=== PATIENT | female | born 1940 | race Caucasian/White ===

== ENCOUNTER → 2016-10-23 | Outpatient (CLI) | payer OTHER | LOC: MMPC 09:00 | PROVIDERS: ATTEND Nurse Practitioner Family | DX: R63.4 Abnormal weight loss (principal); N95.2 Postmenopausal atrophic vaginitis; F17.210 Nicotine dependence, cigarettes, uncomplicated | CPT/HCPCS: 99213; G0463 ==

== ENCOUNTER 2017-05-20 15:41 | Inpatient (IN) ==
[2017-05-20] MEDS ORDERED: LIDOCAINE W/ SODIUM BICARB 0.5 ML SYR SUBD PRN (15:46)
[2017-05-20] MEDS ORDERED: ALBUTEROL SULFATE 2.5 MG/3 ML NEB PRN (15:46)
[2017-05-20] MEDS ORDERED: ONDANSETRON 4 MG/2 ML VIAL IVP PRN (15:46)
[2017-05-20] MEDS ORDERED: cefTRIAXone Inj 2 GM in Sodium Chloride 0.9% 100 ML IV SCH (16:00)
--- NOTE | 2017-05-20 16:11 | PDOC ---
HPI - History of Present Illness Date and Time of Service: 05/20/2017, 1607 Chief Complaint: Cough History of Present Illness: This is a 76-year-old female who has come in with a complaint of a cough at the clinic today and was found to have pneumonia. She states that she was on riverboat trip down the [facility] when she developed some cough and chills. She had some cold symptoms and they progressively got worse. This is been over the last 2 weeks. She's tried [id number] cold and cough medications that did not help. She's tried Tylenol and Motrin or anti- inflammatories for some neck pain, headaches, and back pain that developed with this cough and chills. She was febrile in the clinic, hypoxic, and was given some DuoNeb updrafts. I was called to see if the patient could be directly admitted. Patient's never had anything like this happen before. Her pneumonia severity index is 84 points, class III pneumonia. Her curb-65 score is 1. She has not had the flu shot or the pneumonia shot. She does smoke three quarters of a pack per day. She has never been diagnosed with COPD to my knowledge and her sputum is noted to be productive in the setting of this infection. Past Medical History Medical History: 1. Remote history of diverticulitis status post hemicolectomy. 2. Tobacco abuse. 3. Loss of weight, adult, 30 pounds in last 2 years since 's passing Surgical History: 1. Hemicolectomy as mentioned. 2. Tubal ligation. 3. Tonsillectomy Pertinent Family History: States that her parents of coronary thrombosis and cancer. Past Social History: Smokes three quarters of pack per day, , lives about [place] miles out of town. Has 2 children described as healthy. Tobacco Use: Current Every Day Smoker In the Past 12 Months, Have Used or Abuse Any of the Following Substance: None Alcohol Use: None Medication / Allergies Home Medications: Home Medications Medication Instructions Recorded Confirmed Type Estradiol Vaginal Cream 0.01% 1 applic VAGINAL 2XW #1 tube 04/24/16 05/20/17 Rx [Estrace Vaginal Cream 0.01%] ipratropium-albuterol 0.5 mg-3 3 ml INH ONCE #1 ml 05/20/17 Clinic mg(2.5 mg base)/3 mL nebulization soln Allergies/Adverse Reactions: Allergies 3 Allergy/AdvReac Type Severity Reaction Status Date / Time oxytetracycline Allergy local Verified 05/20/17 16:08 [From Terramycin] reaction oxytetracycline HCl Allergy local Verified 05/20/17 16:08 [From Terramycin] reaction Penicillins Allergy NOT Verified 05/20/17 16:08 APPLICABLE Sulfa (Sulfonamide Allergy HIVES Verified 05/20/17 16:08 Antibiotics) Review of Systems - Review of Systems All Systems: Reviewed & No Additional Complaints Except as Stated (I did a 12 point review systems and it was negative other than that discussed in the history of present illness and that noted below.) - Constitutional Constitutional: REPORTS: Weight Loss (Over the past 2 years. Patient states 30 pounds over the past 2 years.), Fever / Chills, Recent Illness - Respiratory Respiratory: REPORTS: Cough, Sputum - Musculoskeletal Musculoskeletal: REPORTS: Neck Pain (Acute in the setting of this pneumonia along with headache) - Neurological Neurologic: REPORTS: Headache Exam - Vitals Vital Signs: Vital Signs (24 hrs) Pulse Ox 05/20/17 15:46 93 On room air. Currently patient is afebrile, blood pressure systolic is in the 130s, heart rate is in the 80s on my exam. Respiratory rate is 24-26. - General General Appearance: Cooperative, Mild Distress Additional General Exam Details: Appears ill but not toxic. Breathing at a mildly labored rate - Head Head Exam: Normal Inspection, Normocephalic, Atraumatic Additional Head Exam Details: Some temporal wasting - Eye Eye Exam: POSITIVE: Normal Appearance, No Scleral Icterus - ENT ENT Exam: POSITIVE: Mucous Membranes Moist - Neck Neck Exam: Normal Inspection, No Tenderness, No Lymphadenopathy, No Thyromegaly - Respiratory Respiratory Exam: POSITIVE: Normal to Percussion and Palpation, Crackles (In the bases bilaterally), Accessory Muscle Use Additional Respiratory Exam Details: Patient has some accessory muscle use, is breathing in the mid 20s. - Cardiovascular Cardiovascular Exam: POSITIVE: RRR, No Murmur, No Clicks, No Gallops, No Rubs, No JVD - GI/Abdominal GI/Abdominal Exam: POSITIVE: Normal Bowel Sounds, Non Tender, Non Distended, Soft - Rectal Rectal Exam: POSITIVE: Deferred - External Exam: POSITIVE: Deferred Exam: POSITIVE: Deferred - Extremities Extremities Exam: POSITIVE: No Clubbing Present, No Edema Present, No Cyanosis Present Additional Extremities Exam Details: Slight abrasion on right knee from a fall in [place] on her recent river cruise. She states the pain in her knee and the scapular gotten better. Not notable for any swelling or joint effusion. - Back Back Exam: POSITIVE: Normal Inspection, No CVA Tenderness - Neurological Neurological Exam: POSITIVE: Alert, Oriented x 3, No Facial Droop, Speech Intact / Clear, Moves All Extremities Equally - Psychiatric Psychiatric Exam: POSITIVE: Normal Affect, Normal Mood - Integumentary Integumentary Exam: POSITIVE: Normal Color, Warm, Dry, Intact - Central Line Examination Central Line Present on Admission: No Results - Labs Additional Lab Results: I reviewed the labs from the clinic, the patient's whereabouts count is over 20. Her creatinine is normal. She has a sodium of 129. - Imaging Status: Image Reviewed by Me (An outpatient chest x-ray was done and on my view of the chest x-ray the patient appears to have bilateral pneumonia, right side slightly greater than left. This is in the lower lobes bilaterally.) Assessment and Plan - Patient Problems (1) Community acquired pneumonia Current Visit: Yes Status: Acute Code(s): J18.9 - Pneumonia, unspecified organism Qualifiers: Laterality: right Lung location: lower lobe of lung Qualified Code(s): J18.1 - Lobar pneumonia, unspecified organism (2) Tobacco dependence Current Visit: No Status: Acute Onset Date: 01/20/14 Code(s): F17.200 - Nicotine dependence, unspecified, uncomplicated - Assessment / Plan Additional Assessment/Plan Details: Admit the patient. Rocephin and Zithromax IV. Get blood cultures 2. DVT prophylaxis. Smoking cessation education, I spoke with the patient regarding this and she is very pre-contemplative. She would be willing to do a nicotine patch here. For the cough I will also write Mucinex and duo nebs and albuterol. It is very likely that this patient has COPD. She may benefit from spirometry or pulmonary function tests to be done after she recovers from this infection. Her pneumonia severity index and curb65 score show that the patient probably has a mild intermediate pneumonia, however clinically she is reading a more labored rate than normal and intermittently has been noted to be hypoxic in the clinic although on room air is 93% here now. Tylenol for pain and fever, tramadol for pain In my discussion with the PA admitting the patient to me, the x-ray may have had some other indistinct finding in the upper lobe. I will get a CT scan of the chest while the patient is here. Although I will start treatment for community acquired pneumonia, given the proximity to water, legionnaires does need to be thought about, and I'll try to get a Legionella urinary antigen although it is a send out. The patient is full code, discussed this in depth with her. Patient is in agreement with the plan above.
[2017-05-20] MEDS ORDERED: NICOTINE 14 MG /DAY PATCH TRANSDERM ONE (16:18)
[2017-05-20] MEDS ORDERED: Influenza Vacc-Egg Free 17-18 180mcg/0.5ml PF Syringe(18yr+) IM ONE (16:19)
[2017-05-20] MEDS ORDERED: Sodium Chloride 0.9% 1,000 ML PRIMARY IV ONE (16:19)
[2017-05-20] MEDS: traMADol 50 MG TABLET PO PRN (16:44)
[2017-05-20] MEDS: Sodium Chloride 0.9% 1,000 ML PRIMARY IV SCH (17:29)
[2017-05-20] MEDS: NICOTINE 14 MG /DAY PATCH TRANSDERM SCH (17:32)
[2017-05-20] MEDS ORDERED: CEFTRIAXONE SODIUM 2 GM VIAL IV ONE (17:34)
--- NOTE | 2017-05-20 18:21 | DI ---
CT CHEST SCAN WITHOUT IV CONTRAST, 05/20/2017 5:25 PM : Clinical History: Pneumonia. Smoker. Low serum sodium. This history was provided to me by the [facility] hospitalist. Previous Exam: None at this facility. Scans are performed from the base of the neck to the lower lung bases without IV contrast. Sagittal a nd coronal images using non MIPS and MIPS technique are generated. The base of the neck and thoracic inlet are normal. There are no abnormal axillary, supraclavicular, or hilar nodes. There are multiple enlarged lymph nodes in the superior mediastinum in the aortopulmo saurav window as well as paratracheal lymph nodes just anterior to the humberto. The heart is normal. Cristian nary artery calcifications are present in the proximal and middle thirds of the LAD and in the right coronary artery. There are bilateral alveolar type infiltrates involving the lower lobes predominatel y in the basal segments of the left lower lobe and to a lesser degree in the anterobasal and lateral basal segments of the right lower lobe. There is mild bronchiectasis in the lower lobes. Bullae are p resent in both upper lobes indicating bullous emphysema. In the right upper lobe laterally in the api earlene segment are multiple densities measuring about 15 mm in diameter that are pleural-based. The more anterior lesion does have some spiculations. The more posterior component has some small punctate ca lcifications and is more sharply defined. It is difficult to state specifically the one or the other of these lesions is malignant. No other nodular densities are present. Both adrenal glands, the splee n, and the visualized portions of the liver and pancreas are normal. READIN. There are bilateral lower lobe infiltrates primarily involving the basal segments of the left low er lobe but also of the anterobasal and lateral basal segments of the right lower lobe. These are con sistent with pneumonia, although if they do not resolve in typical fashion of a pneumonia, then consi deration for alveolar cell carcinoma should be made. There is some mild bronchiectasis. There is archana opathy in the superior and middle mediastinum. No hilar adenopathy is identified. 2. There are pleural-based nodules located along the lateral aspect of the apical segment of the rig ht upper lobe. The more anterior component has a spiculated appearance and the more posterior compone nt has some small calcifications. These are indeterminant for representing carcinoma. 3. Bullous emphysema. Coronary artery disease.
[2017-05-20] MEDS ORDERED: KETOROLAC 15 MG/1 ML VIAL IVP ONE (18:52)
[2017-05-20] MEDS: IPRATROPIUM/ALBUTEROL SULFATE 3 ML NEB NEB SCH (18:59)
[2017-05-20] MEDS: cefTRIAXone Inj 2 GM in Sodium Chloride 0.9% 100 ML IV SCH (19:22)
[2017-05-20] MEDS: GUAIFENESIN 600 MG TABLET PO SCH (22:00)
[2017-05-21] MEDS: Sodium Chloride 0.9% 1,000 ML PRIMARY IV SCH ×2 (01:00→09:47)
[2017-05-21 05:42] LABS: Hematocrit [HCT] 34.1 % (37.0-47.0); Hemoglobin [HGB] 11.8 g/dL (12.0-16.0); MEAN CORPUSCULAR HEMOGLOBIN 31.4 PG (27-31); MEAN CORPUSCULAR HGB CONC 34.6 g/dL (33-37); MEAN CORPUSCULAR VOLUME 90.7 FL (81-99); MEAN PLATELET VOLUME 9.4 FL (7.4-12.2); RED BLOOD COUNT 3.76 10^6/uL (4.20-5.40)
[2017-05-21 05:52] LABS: BLOOD UREA NITROGEN 11 mg/dL (7-22); BUN/CREATININE RATIO 18.33 (6-20)
[2017-05-21 06:13] LABS: PLATELET MORPHOLOGY COMMENT NORMAL MORPHOLOGY (NORM); RBC MORPHOLOGY COMMENT NORMAL MORPHOLOGY (NORM); WBC MORPHOLOGY COMMENT NORMAL MORPHOLOGY (NORM)
[2017-05-21 06:15] LABS: BAND NEUTROPHILS % 8 % (0-10); BASOPHILS % (MANUAL) 0 % (0-1); EOSINOPHILS % (MANUAL) 0 % (0-8); MONOCYTES % (MANUAL) 10 % (0-12); NEUTROPHILS % (MANUAL) 74 % (50-80)
[2017-05-21] MEDS: IPRATROPIUM/ALBUTEROL SULFATE 3 ML NEB NEB SCH ×4 (06:51→18:45)
[2017-05-21] MEDS: traMADol 50 MG TABLET PO PRN (07:28)
[2017-05-21] MEDS: ENOXAPARIN SODIUM 40 MG/0.4 ML SYRINGE SUBCUT SCH (08:51)
[2017-05-21] MEDS: GUAIFENESIN 600 MG TABLET PO SCH ×2 (08:51→23:42)
--- NOTE | 2017-05-21 10:53 | DI ---
CT HEAD SCAN WITHOUT IV CONTRAST, 05/20/2017 4:20 PM : Clinical History: Pneumonia. Smoker. Comment: The study was inadvertently performed because of communication errors. The patient was sched uled for a noncontrast CT scan of the chest but this head scan was performed instead. The patient was not charged for this procedure. An incident report has been filed. No harm was sustained by the braydon ent. Previous Exam: None at this facility. Scans are obtained from the foramen magnum to the vertex without IV contrast. The 4th, 3rd, and lateral ventricles are of normal size, shape, position, and contour for the patient 's age. There is no evidence of an acute hemorrhagic or bland infarct. There are multiple punctate pe riventricular white matter lucencies bilaterally that extend into the watershed territory, consistent with small vessel ischemic disease. This amount of ischemic disease is quite appropriate for the pat ient's age. There is moderate cerebellar and cerebral atrophy. There are no extracerebral mantles or shift of the midline structures. Bone window evaluation is normal. The paranasal sinuses are normal. READIN. This examination was performed inadvertently because of a miscommunication regarding the orders f or this patient. The patient was not harmed. The patient was not charged for this exam. 2. There is no evidence of an acute hemorrhagic or bland infarct. There is very mild small vessel is chemic disease. 3. Moderate cerebellar and cerebral atrophy.
[2017-05-21] MEDS: Patch Removal PATCH TRANSDERM SCH ×2 (15:10→15:40)
[2017-05-21] MEDS: NICOTINE 14 MG /DAY PATCH TRANSDERM SCH ×2 (15:10→15:40)
[2017-05-21] MEDS: cefTRIAXone Inj 2 GM in Sodium Chloride 0.9% 100 ML IV SCH (19:00)
--- NOTE | 2017-05-21 20:56 | PDOC(PROG) ---
Date and Time of Service: 05/21/2017, 2051 Interval History: No chest pain, but continues with cough and had poor sleep overnight. No nausea or vomiting. We discussed the head CT scan, I disclosed that somehow an error was made with that study, I agree with radiology that no harm results of because of this area. The patient was not charged for the study. It did show some cerebral vascular disease, but no evidence of stroke or hemorrhage. The patient stated that she understood. She was grateful for an apology that I gave her. Mucinex did not help much with the cough. Objective : Data - Labs CBC and BMP: 05/21/17 05:25 05/21/17 05:25 Additional Lab Results: Laboratory Results 05/21/17 05/21/17 Range/Units 05:25 05:25 WBC 19.44 H (4.8-10.8) 10^3/uL RBC 3.76 L (4.20-5.40) 10^6/uL Hgb 11.8 L (12.0-16.0) g/dL Hct 34.1 L (37.0-47.0) % MCV 90.7 (81-99) FL MCH 31.4 H (27-31) PG MCHC 34.6 (33-37) g/dL RDW Std Deviation 40.9 (39-50) fL RDW Coeff of Alisa 12.6 (11.5-14.5) % Plt Count 286 (140-350) 10*3/uL MPV 9.4 (7.4-12.2) FL Neutrophils % (Manual) 74 (50-80) % Band Neutrophils % 8 (0-10) % Lymphocytes % (Manual) 8 L (10-50) % Monocytes % (Manual) 10 (0-12) % Eosinophils % (Manual) 0 (0-8) % Basophils % (Manual) 0 (0-1) % Metamyelocytes % Not Reportable Myelocytes % Not Reportable Promyelocytes % Not Reportable Blast Cells Not Reportable WBC Morphology Comment Normal morphology (NORM) Plt Morphology Comment Normal morphology (NORM) RBC Morph Comment Normal morphology (NORM) Sodium 129 L (135-145) meq/L Potassium 4.3 (3.8-5.2) meq/L Chloride 99 (98-112) meq/L Carbon Dioxide 21 L (23-33) meq/L Anion Gap 9 (5-20) BUN 11 (7-22) mg/dL Creatinine 0.6 (0.50-1.20) mg/dL BUN/Creatinine Ratio 18.33 (6-20) Glucose 93 (78-110) mg/dL Calculated Osmolality 266.0 L (267-292) mOsm/kg Calcium 7.6 L (8.7-10.7) mg/dL - Imaging CT Scan Status: Image Reviewed by Me (CT scan of the head appears negative for bleed on my view. CT scan of the chest shows what appears to be an infectious process in the left lower lobe, and some pulmonary masses or nodules in the right upper lobe that are spiculated and suspicious for more than just infection. They are in the periphery of the lung.) Objective : Exam - General General Appearance: No Acute Distress, Cooperative Additional General Exam Details: Vital Signs (24 hrs) Temp Pulse Pulse Pulse Resp BP Pulse Ox 05/21/17 18:46 84 18 99 05/21/17 18:45 80 17 95 05/21/17 16:49 99.1 F 89 18 125/61 97 05/21/17 15:46 96 05/21/17 15:00 78 18 99 05/21/17 14:59 81 18 96 05/21/17 12:19 98.4 F 101 H 22 111/51 92 05/21/17 11:49 80 18 100 05/21/17 11:48 79 18 94 05/21/17 08:07 98.6 F 95 18 105/51 93 05/21/17 07:00 100 18 05/21/17 06:52 90 20 98 05/21/17 06:51 91 05/21/17 05:22 83 05/21/17 05:00 98.6 F 92 22 127/62 91 05/21/17 00:44 98.6 F 92 22 127/62 91 05/20/17 21:00 98.4 F 90 20 115/55 90 - Eye Eye Exam: No Scleral Icterus - ENT ENT Exam: Mucous Membranes Moist - Respiratory Respiratory Exam: Breathing Non Labored, Coarse Breath Sounds Additional Respiratory Exam Details: Lots of coughing on exam but not productive. - Cardiovascular Cardiovascular Exam: RRR, No Murmur, No Clicks, No Gallops, No Rubs, No JVD - GI/Abdominal GI/Abdominal Exam: Normal Bowel Sounds, Non Tender, Non Distended, Soft - Extremities Extremities Exam: No Clubbing Present, No Edema Present, No Cyanosis Present - Neurological Neurological Exam: Alert, Oriented x 3, No Facial Droop, Speech Intact / Clear, Moves All Extremities Equally - Psychiatric Psychiatric Exam: Normal Affect, Normal Mood Assessment and Plan - Patient Problems (1) Community acquired pneumonia Current Visit: Yes Status: Acute Code(s): J18.9 - Pneumonia, unspecified organism Qualifiers: Laterality: right Lung location: lower lobe of lung Qualified Code(s): J18.1 - Lobar pneumonia, unspecified organism (2) Tobacco dependence Current Visit: Yes Status: Acute Onset Date: 01/20/14 Code(s): F17.200 - Nicotine dependence, unspecified, uncomplicated (3) Hyponatremia Current Visit: Yes Status: Acute Code(s): E87.1 - Hypo-osmolality and hyponatremia (4) Cerebrovascular disease Current Visit: Yes Status: Acute Code(s): I67.9 - Cerebrovascular disease, unspecified - Assessment / Plan Additional Assessment/Plan Details: Overall, I think that the hyponatremia persistent despite normal saline bolus and fluids overnight 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 I think we need to get the patient arranged with either oncology or pulmonology to review the CT scans, and I would like to get the patient through therapy of this pneumonia prior to any procedures being performed but the patient may need to have a closer look at these. I discussed this with the patient in detail. Nicotine patch for smoking cessation. Again I reiterated the importance of quitting smoking. Continue antibiotics, day #2 of 7. I will change Zithromax to by mouth tomorrow. Add Robitussin with codeine for cough. Oxygen as necessary, patient did have some episodes of hypoxia overnight.
[2017-05-21] MEDS: GUAIFENESIN/CODEINE SYRUP 100 MG/ 10 MG/ 5 ML UD CUP PO PRN (23:43)
[2017-05-22] MEDS: IPRATROPIUM/ALBUTEROL SULFATE 3 ML NEB NEB SCH ×4 (06:56→18:39)
[2017-05-22] MEDS: traMADol 50 MG TABLET PO PRN ×2 (07:07→21:33)
[2017-05-22] MEDS: GUAIFENESIN/CODEINE SYRUP 100 MG/ 10 MG/ 5 ML UD CUP PO PRN (07:07)
[2017-05-22] MEDS: ENOXAPARIN SODIUM 40 MG/0.4 ML SYRINGE SUBCUT SCH (08:32)
[2017-05-22] MEDS: GUAIFENESIN 600 MG TABLET PO SCH ×2 (08:32→20:25)
[2017-05-22] MEDS ORDERED: AZITHROMYCIN 250 MG TABLET PO ONE (15:30)
--- NOTE | 2017-05-22 15:38 | PDOC(PROG) ---
Date and Time of Service: 05/22/2017, 1535 Interval History: no chest pain. still had poor sleep but cough is a bit better today and she feels better. no nausea or vomiting. Hypoxia has been intermittent. Objective : Data - Labs CBC and BMP: 05/21/17 05:25 05/21/17 05:25 Additional Lab Results: Laboratory Results 05/21/17 05/21/17 05/21/17 Range/Units 05:25 05:25 09:34 WBC 19.44 H (4.8-10.8) 10^3/uL RBC 3.76 L (4.20-5.40) 10^6/uL Hgb 11.8 L (12.0-16.0) g/dL Hct 34.1 L (37.0-47.0) % MCV 90.7 (81-99) FL MCH 31.4 H (27-31) PG MCHC 34.6 (33-37) g/dL RDW Std Deviation 40.9 (39-50) fL RDW Coeff of Alisa 12.6 (11.5-14.5) % Plt Count 286 (140-350) 10*3/uL MPV 9.4 (7.4-12.2) FL Neutrophils % (Manual) 74 (50-80) % Band Neutrophils % 8 (0-10) % Lymphocytes % (Manual) 8 L (10-50) % Monocytes % (Manual) 10 (0-12) % Eosinophils % (Manual) 0 (0-8) % Basophils % (Manual) 0 (0-1) % Metamyelocytes % Not Reportable Myelocytes % Not Reportable Promyelocytes % Not Reportable Blast Cells Not Reportable WBC Morphology Comment Normal morphology (NORM) Plt Morphology Comment Normal morphology (NORM) RBC Morph Comment Normal morphology (NORM) Sodium 129 L (135-145) meq/L Potassium 4.3 (3.8-5.2) meq/L Chloride 99 (98-112) meq/L Carbon Dioxide 21 L (23-33) meq/L Anion Gap 9 (5-20) BUN 11 (7-22) mg/dL Creatinine 0.6 (0.50-1.20) mg/dL BUN/Creatinine Ratio 18.33 (6-20) Glucose 93 (78-110) mg/dL Calculated Osmolality 266.0 L (267-292) mOsm/kg Calcium 7.6 L (8.7-10.7) mg/dL TSH (0.2700-4.2000) uIU/mL Free T4 (0.93-1.71) ng/dL Ur Random Sodium 120 H (30-90) MMOL/L 05/22/17 Range/Units 03:22 WBC (4.8-10.8) 10^3/uL RBC (4.20-5.40) 10^6/uL Hgb (12.0-16.0) g/dL Hct (37.0-47.0) % MCV (81-99) FL MCH (27-31) PG MCHC (33-37) g/dL RDW Std Deviation (39-50) fL RDW Coeff of Alisa (11.5-14.5) % Plt Count (140-350) 10*3/uL MPV (7.4-12.2) FL Neutrophils % (Manual) (50-80) % Band Neutrophils % (0-10) % Lymphocytes % (Manual) (10-50) % Monocytes % (Manual) (0-12) % Eosinophils % (Manual) (0-8) % Basophils % (Manual) (0-1) % Metamyelocytes % Myelocytes % Promyelocytes % Blast Cells WBC Morphology Comment (NORM) Plt Morphology Comment (NORM) RBC Morph Comment (NORM) Sodium (135-145) meq/L Potassium (3.8-5.2) meq/L Chloride (98-112) meq/L Carbon Dioxide (23-33) meq/L Anion Gap (5-20) BUN (7-22) mg/dL Creatinine (0.50-1.20) mg/dL BUN/Creatinine Ratio (6-20) Glucose (78-110) mg/dL Calculated Osmolality (267-292) mOsm/kg Calcium (8.7-10.7) mg/dL TSH 2.38 (0.2700-4.2000) uIU/mL Free T4 1.64 (0.93-1.71) ng/dL Ur Random Sodium (30-90) MMOL/L Objective : Exam - General General Appearance: No Acute Distress, Cooperative Additional General Exam Details: Vital Signs (24 hrs) Temp Pulse Pulse Pulse Resp BP Pulse Ox 05/22/17 14:57 84 18 05/22/17 14:56 84 18 05/22/17 13:00 98.4 F 98 20 125/58 90 05/22/17 10:39 86 18 05/22/17 10:38 86 18 05/22/17 07:56 98.7 F 92 20 118/51 90 05/22/17 07:00 98 18 05/22/17 06:57 96 24 05/22/17 06:56 94 24 05/22/17 04:45 98.1 F 88 20 122/54 92 05/22/17 04:24 95 05/22/17 00:47 97.8 F 86 20 117/57 94 05/21/17 21:00 98.8 F 87 20 129/69 95 05/21/17 19:00 100 86 20 05/21/17 18:46 84 18 99 05/21/17 18:45 80 17 95 05/21/17 16:49 99.1 F 89 18 125/61 97 05/21/17 15:46 96 - Eye Eye Exam: No Scleral Icterus - ENT ENT Exam: Mucous Membranes Moist - Respiratory Respiratory Exam: Breathing Non Labored, Crackles (in bases bilaterally) - Cardiovascular Cardiovascular Exam: RRR, No Murmur, No Clicks, No Gallops, No Rubs, No JVD - GI/Abdominal GI/Abdominal Exam: Normal Bowel Sounds, Non Tender, Non Distended, Soft - Extremities Extremities Exam: No Clubbing Present, No Edema Present, No Cyanosis Present - Neurological Neurological Exam: Alert, Oriented x 3, No Facial Droop, Speech Intact / Clear, Moves All Extremities Equally - Psychiatric Psychiatric Exam: Normal Affect, Normal Mood Assessment and Plan - Patient Problems (1) Community acquired pneumonia Current Visit: Yes Status: Acute Code(s): J18.9 - Pneumonia, unspecified organism Qualifiers: Laterality: right Lung location: lower lobe of lung Qualified Code(s): J18.1 - Lobar pneumonia, unspecified organism (2) Tobacco dependence Current Visit: Yes Status: Acute Onset Date: 01/20/14 Code(s): F17.200 - Nicotine dependence, unspecified, uncomplicated (3) Hyponatremia Current Visit: Yes Status: Acute Code(s): E87.1 - Hypo-osmolality and hyponatremia (4) Cerebrovascular disease Current Visit: Yes Status: Acute Code(s): I67.9 - Cerebrovascular disease, unspecified - Assessment / Plan Additional Assessment/Plan Details: day #3 of 7 of antibiotics. zithromax to PO today. can probably come off IV antibiotics tomorrow if no fevers. I would like to get patient to Dr. Dee regarding the suspicious lesions in the chest on CT scan in [place]. I suspect they are cancer. 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 smoking cessation dietary consult; ensure or boost supplements. check labs tomorrow.
[2017-05-22] MEDS: Patch Removal PATCH TRANSDERM SCH (15:48)
[2017-05-22] MEDS: NICOTINE 14 MG /DAY PATCH TRANSDERM SCH (15:48)
[2017-05-22] MEDS: cefTRIAXone Inj 2 GM in Sodium Chloride 0.9% 100 ML IV SCH (17:10)
[2017-05-22] MEDS: NORMAL SALINE 10 ML SYRINGE FLUSH IVP PRN (17:11)
[2017-05-23 05:10] LABS: Hematocrit [HCT] 32.7 % (37.0-47.0); Hemoglobin [HGB] 11.3 g/dL (12.0-16.0); MEAN CORPUSCULAR HEMOGLOBIN 31.1 PG (27-31); MEAN CORPUSCULAR HGB CONC 34.6 g/dL (33-37); MEAN CORPUSCULAR VOLUME 90.1 FL (81-99); MEAN PLATELET VOLUME 9.3 FL (7.4-12.2); RED BLOOD COUNT 3.63 10^6/uL (4.20-5.40)
[2017-05-23 05:26] LABS: BLOOD UREA NITROGEN 6 mg/dL (7-22)
[2017-05-23 05:47] LABS: BAND NEUTROPHILS % 9 % (0-10); BASOPHILS % (MANUAL) 0 % (0-1); EOSINOPHILS % (MANUAL) 0 % (0-8); MONOCYTES % (MANUAL) 9 % (0-12); NEUTROPHILS % (MANUAL) 68 % (50-80); PLATELET MORPHOLOGY COMMENT NORMAL MORPHOLOGY (NORM); RBC MORPHOLOGY COMMENT NORMAL MORPHOLOGY (NORM); WBC MORPHOLOGY COMMENT NORMAL MORPHOLOGY (NORM)
[2017-05-23] MEDS: IPRATROPIUM/ALBUTEROL SULFATE 3 ML NEB NEB SCH ×4 (06:34→18:36)
[2017-05-23] MEDS: GUAIFENESIN/CODEINE SYRUP 100 MG/ 10 MG/ 5 ML UD CUP PO PRN ×2 (06:44→18:53)
[2017-05-23] MEDS: traMADol 50 MG TABLET PO PRN (06:49)
--- NOTE | 2017-05-23 07:51 | PDOC(PROG) ---
Date and Time of Service: 05/23/2017 7:52 AM Interval History: Subjective Patient came into the hospital with history of cough with phlegm production, the phlegm was described as a yellow then brown and now it's clear. She was on a cruise down the [facility] area when she said she got sick and her symptoms persisted and she came into the clinic and was admitted. There was no wheezing, she did have fever at one point but that's resolved. She think there may be some improvement compared to when she came in. She is a smoker. Today she said she had a coughing spell and and diarrhea went like 4 times. Liquid diarrhea. No blood. Objective : Data - Labs CBC and BMP: 05/23/17 04:35 05/23/17 04:35 Objective : Exam - General General Appearance: Cooperative, Thin Additional General Exam Details: Appears tired - Head Head Exam: Normal Inspection - Eye Eye Exam: Normal Appearance - ENT ENT Exam: Normal Exam - Neck Neck Exam: Normal Inspection - Respiratory Additional Respiratory Exam Details: Crackles bilateral at the bases and also the front of the left lung. - Cardiovascular Cardiovascular Exam: RRR - GI/Abdominal GI/Abdominal Exam: Normal Bowel Sounds, Non Tender, Non Distended, Soft - Rectal Rectal Exam: Deferred - External Exam: Deferred - Extremities Extremities Exam: Normal Inspection - Back Back Exam: Normal Inspection, Full ROM - Neurological Neurological Exam: Alert, Oriented x 3, CN II-XII Intact, Moves All Extremities Equally - Psychiatric Psychiatric Exam: Normal Affect - Integumentary Integumentary Exam: Normal Color Assessment and Plan - Patient Problems (1) Community acquired pneumonia Current Visit: Yes Status: Acute Comment: She is been treated as community-acquired pneumonia continue the current medications. However her recent travel down the [facility] raises the possibility also of fungal infection, will send testing for histoplasmosis and I may discuss it with a infectious disease and see what they think. The other possibilities malignancy and a request for follow-up appointment with oncology were faxed to them. They will call the patient. Code(s): J18.9 - Pneumonia, unspecified organism Qualifiers: Laterality: right Lung location: lower lobe of lung Qualified Code(s): J18.1 - Lobar pneumonia, unspecified organism (2) Hyponatremia Current Visit: Yes Status: Acute Comment: Suggestive of SIADH, will order a UA, I dont see an serum osmolality of the urine done. The high urine sodium suggests that this is SIADH Code(s): E87.1 - Hypo-osmolality and hyponatremia (3) Diarrhea Current Visit: Yes Status: Acute Comment: Probably related to the antibiotics, will send for C. difficile. More likely a side effect rather than a C. difficile infection Code(s): R19.7 - Diarrhea, unspecified
[2017-05-23] MEDS: ENOXAPARIN SODIUM 40 MG/0.4 ML SYRINGE SUBCUT SCH (08:14)
[2017-05-23] MEDS: GUAIFENESIN 600 MG TABLET PO SCH ×2 (08:14→21:57)
[2017-05-23] MEDS ORDERED: AZITHROMYCIN 250 MG TABLET PO SCH (09:00)
[2017-05-23] MEDS: Levofloxacin (Premix) 750 MG/150 ML PIGGYBACK IV SCH (15:53)
[2017-05-23] MEDS: NICOTINE 14 MG /DAY PATCH TRANSDERM SCH (15:53)
[2017-05-23] MEDS: Patch Removal PATCH TRANSDERM SCH (15:54)
[2017-05-24] MEDS: GUAIFENESIN/CODEINE SYRUP 100 MG/ 10 MG/ 5 ML UD CUP PO PRN ×2 (03:38→11:25)
[2017-05-24 05:43] LABS: Hematocrit [HCT] 32.6 % (37.0-47.0); Hemoglobin [HGB] 11.3 g/dL (12.0-16.0); MEAN CORPUSCULAR HGB CONC 34.7 g/dL (33-37); MEAN CORPUSCULAR VOLUME 89.3 FL (81-99); MEAN PLATELET VOLUME 9.4 FL (7.4-12.2); RED BLOOD COUNT 3.65 10^6/uL (4.20-5.40)
[2017-05-24 05:48] LABS: BLOOD UREA NITROGEN 6 mg/dL (7-22)
[2017-05-24 06:03] LABS: BAND NEUTROPHILS % 0 % (0-10); NEUTROPHILS % (MANUAL) 67 % (50-80); PLATELET MORPHOLOGY COMMENT NORMAL MORPHOLOGY (NORM); RBC MORPHOLOGY COMMENT NORMAL MORPHOLOGY (NORM); WBC MORPHOLOGY COMMENT SEE COMMENTS (NORM)
[2017-05-24 06:04] LABS: BASOPHILS % (MANUAL) 0 % (0-1); EOSINOPHILS % (MANUAL) 0 % (0-8); MONOCYTES % (MANUAL) 14 % (0-12)
[2017-05-24] MEDS: IPRATROPIUM/ALBUTEROL SULFATE 3 ML NEB NEB SCH ×4 (06:15→19:02)
[2017-05-24] MEDS: ENOXAPARIN SODIUM 40 MG/0.4 ML SYRINGE SUBCUT SCH (08:28)
[2017-05-24] MEDS: GUAIFENESIN 600 MG TABLET PO SCH ×2 (08:28→20:42)
--- NOTE | 2017-05-24 09:04 | PDOC(PROG) ---
Date and Time of Service: 05/24/2017 9 AM Interval History: Subjective Today maybe a little bit better but she said her symptoms are fluctuating between not feeling well and feeling well. Like last night she thought that she had some fever and chills. No wheezing. Still having some cough with some phlegm production which is more clear. Objective : Data - Labs CBC and BMP: 05/24/17 04:25 05/24/17 04:25 Objective : Exam - General General Appearance: Cooperative, Thin - Head Head Exam: Normal Inspection - Eye Eye Exam: Normal Appearance - ENT ENT Exam: Normal Exam - Neck Neck Exam: Normal Inspection - Respiratory Additional Respiratory Exam Details: Bilateral crackles. Mostly on the left side. - Cardiovascular Cardiovascular Exam: RRR - GI/Abdominal GI/Abdominal Exam: Normal Bowel Sounds, Non Tender, Non Distended, Soft - Rectal Rectal Exam: Deferred - External Exam: Deferred - Extremities Extremities Exam: Normal Inspection - Back Back Exam: Normal Inspection - Neurological Neurological Exam: Alert, Oriented x 3, CN II-XII Intact, Moves All Extremities Equally - Psychiatric Psychiatric Exam: Normal Affect - Integumentary Integumentary Exam: Normal Color Assessment and Plan - Patient Problems (1) Community acquired pneumonia Current Visit: Yes Status: Acute Comment: I did speak with infectious disease yesterday and he thinks probably this is Legionella, suggested switching to Levaquin. He did not think that this is fungal infection. Her white count is coming down so this is encouraging. She still though not much improved. I told her I would like her to stay another day in the hospital will see how her symptoms and how she feels since she lives far away from here before we think about releasing her. 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
[2017-05-24] MEDS: traMADol 50 MG TABLET PO PRN (11:25)
[2017-05-24] MEDS: NICOTINE 14 MG /DAY PATCH TRANSDERM SCH (15:35)
[2017-05-24] MEDS: Levofloxacin (Premix) 750 MG/150 ML PIGGYBACK IV SCH (15:36)
[2017-05-24] MEDS: Patch Removal PATCH TRANSDERM SCH (15:36)
[2017-05-25] MEDS: GUAIFENESIN/CODEINE SYRUP 100 MG/ 10 MG/ 5 ML UD CUP PO PRN ×2 (00:21→21:18)
[2017-05-25 05:36] LABS: Hematocrit [HCT] 32.9 % (37.0-47.0); Hemoglobin [HGB] 11.2 g/dL (12.0-16.0); MEAN CORPUSCULAR HEMOGLOBIN 30.5 PG (27-31); MEAN CORPUSCULAR VOLUME 89.6 FL (81-99); MEAN PLATELET VOLUME 8.9 FL (7.4-12.2); RED BLOOD COUNT 3.67 10^6/uL (4.20-5.40)
[2017-05-25 05:42] LABS: BLOOD UREA NITROGEN 8 mg/dL (7-22); SERUM ALBUMIN 2.6 g/dL (3.5-4.8)
[2017-05-25 06:02] LABS: PLATELET MORPHOLOGY COMMENT NORMAL MORPHOLOGY (NORM); RBC MORPHOLOGY COMMENT NORMAL MORPHOLOGY (NORM); WBC MORPHOLOGY COMMENT SEE COMMENTS (NORM)
[2017-05-25 06:03] LABS: BAND NEUTROPHILS % 0 % (0-10); BASOPHILS % (MANUAL) 0 % (0-1); EOSINOPHILS % (MANUAL) 0 % (0-8); MONOCYTES % (MANUAL) 16 % (0-12); NEUTROPHILS % (MANUAL) 63 % (50-80)
[2017-05-25] MEDS: IPRATROPIUM/ALBUTEROL SULFATE 3 ML NEB NEB SCH ×4 (07:36→18:19)
[2017-05-25] MEDS: ENOXAPARIN SODIUM 40 MG/0.4 ML SYRINGE SUBCUT SCH (08:00)
[2017-05-25] MEDS: GUAIFENESIN 600 MG TABLET PO SCH ×2 (08:00→21:18)
[2017-05-25] MEDS: traMADol 50 MG TABLET PO PRN ×2 (08:00→14:05)
--- NOTE | 2017-05-25 08:06 | PDOC(PROG) ---
Date and Time of Service: 05/25/2017 8:03 AM Interval History: Subjective She said she started to feel improving then she started to have some pain in the left upper quadrant after a bout of cough. Breathing seemed to be the same. The cough is mainly dry now it's less than before there is phlegm which is mostly clear now. Objective : Data - Labs CBC and BMP: 05/25/17 04:20 05/25/17 04:20 Objective : Exam - General General Appearance: No Acute Distress, Cooperative, Thin - Head Head Exam: Normal Inspection - Eye Eye Exam: Normal Appearance - ENT ENT Exam: Normal Exam - Neck Neck Exam: Normal Inspection - Respiratory Additional Respiratory Exam Details: Few crackles at the bases more on the left side compared to the right - Cardiovascular Cardiovascular Exam: RRR - GI/Abdominal GI/Abdominal Exam: Normal Bowel Sounds, Non Tender, Non Distended, Soft, No Organomegaly - Rectal Rectal Exam: Deferred - External Exam: Deferred - Extremities Extremities Exam: Normal Inspection - Back Back Exam: Normal Inspection - Neurological Neurological Exam: Alert, Oriented x 3, CN II-XII Intact, Speech Intact / Clear , Moves All Extremities Equally - Psychiatric Psychiatric Exam: Normal Affect - Integumentary Integumentary Exam: Normal Color Assessment and Plan - Patient Problems (1) Community acquired pneumonia Current Visit: Yes Status: Acute Comment: Looks more likely caused by Legionella. Still waiting for the urine test though. Continue Levaquin. The mildly elevation in LFTs also goes with Legionella. Her white count continued to improve. She still weak though and having some pain which look like muscular kind of pain. There is no tenderness. I think will watch her another day in the hospital as she continued to be weak. We'll see whether she qualifies for her swing bed. Code(s): J18.9 - Pneumonia, unspecified organism Qualifiers: Laterality: right Lung location: lower lobe of lung Qualified Code(s): J18.1 - Lobar pneumonia, unspecified organism (2) Hyponatremia Current Visit: Yes Status: Acute Comment: Stable. Probably secondary to the infection. Code(s): E87.1 - Hypo-osmolality and hyponatremia
[2017-05-25] MEDS: Levofloxacin (Premix) 750 MG/150 ML PIGGYBACK IV SCH (15:48)
[2017-05-25] MEDS: NICOTINE 14 MG /DAY PATCH TRANSDERM SCH (15:48)
[2017-05-25] MEDS: Patch Removal PATCH TRANSDERM SCH (15:50)
[2017-05-26 04:37] LABS: Hematocrit [HCT] 31.9 % (37.0-47.0); Hemoglobin [HGB] 11.2 g/dL (12.0-16.0); MEAN CORPUSCULAR HEMOGLOBIN 31.5 PG (27-31); MEAN CORPUSCULAR HGB CONC 35.1 g/dL (33-37); MEAN CORPUSCULAR VOLUME 89.9 FL (81-99); MEAN PLATELET VOLUME 8.3 FL (7.4-12.2); RED BLOOD COUNT 3.55 10^6/uL (4.20-5.40)
[2017-05-26 04:47] LABS: BLOOD UREA NITROGEN 9 mg/dL (7-22); SERUM ALBUMIN 2.5 g/dL (3.5-4.8)
[2017-05-26 04:49] LABS: BAND NEUTROPHILS % 1 % (0-10); BASOPHILS % (MANUAL) 1 % (0-1); EOSINOPHILS % (MANUAL) 2 % (0-8); MONOCYTES % (MANUAL) 9 % (0-12); NEUTROPHILS % (MANUAL) 60 % (50-80); PLATELET MORPHOLOGY COMMENT NORMAL MORPHOLOGY (NORM); RBC MORPHOLOGY COMMENT NORMAL MORPHOLOGY (NORM); WBC MORPHOLOGY COMMENT SEE COMMENTS (NORM)
[2017-05-26] MEDS: IPRATROPIUM/ALBUTEROL SULFATE 3 ML NEB NEB SCH ×4 (07:33→19:13)
--- NOTE | 2017-05-26 08:28 | PDOC(PROG) ---
Date and Time of Service: 05/26/2017 8:26 AM Interval History: Subjective Patient feels better than yesterday, she did eat better than yesterday. The cough is less. The pain that she had in the side of the chest seemed to be improved. Objective : Data - Labs CBC and BMP: 05/26/17 04:15 05/26/17 04:15 Objective : Exam - General General Appearance: No Acute Distress, Cooperative, Thin - Head Head Exam: Normal Inspection - Eye Eye Exam: Normal Appearance - ENT ENT Exam: Normal Exam - Neck Neck Exam: Normal Inspection - Respiratory Additional Respiratory Exam Details: Few crackles at the bases they are less than before. - Cardiovascular Cardiovascular Exam: RRR - GI/Abdominal GI/Abdominal Exam: Normal Bowel Sounds, Non Tender, Non Distended, Soft - Rectal Rectal Exam: Deferred - External Exam: Deferred Exam: Deferred - Extremities Extremities Exam: Normal Inspection - Back Back Exam: Normal Inspection - Neurological Neurological Exam: Alert, Oriented x 3, CN II-XII Intact, Speech Intact / Clear , Moves All Extremities Equally - Psychiatric Psychiatric Exam: Normal Affect Assessment and Plan - Patient Problems (1) Community acquired pneumonia Current Visit: Yes Status: Acute Comment: Continue current antibiotics. The Legionella antigen came back negative, But clinically she is making improvement so I think we'll continue the same course. I did talk to her about the maybe swing bed status evaluation , she is open to it. I will talk to the technical planner and will ask for physical therapy and occupational therapy evaluation and see whether she qualifies, if she qualifies then will switch to swing bed status. Code(s): J18.9 - Pneumonia, unspecified organism Qualifiers: Laterality: right Lung location: lower lobe of lung Qualified Code(s): J18.1 - Lobar pneumonia, unspecified organism (2) Hyponatremia Current Visit: Yes Status: Acute Comment: This is improving Code(s): E87.1 - Hypo-osmolality and hyponatremia
[2017-05-26] MEDS: ENOXAPARIN SODIUM 40 MG/0.4 ML SYRINGE SUBCUT SCH (08:32)
[2017-05-26] MEDS: GUAIFENESIN 600 MG TABLET PO SCH ×2 (08:32→21:56)
--- NOTE | 2017-05-26 13:34 | PT.PROG ---
Progress Note Progress Note: Thank you for the referral of PTAntonio Calhoun was seen on 05/26/2017 for the above diagnosis. SUBJECTIVE: Pt is a 76 year old female who lives at home alone with her dog. [place] [facility]. There are 2 stairs entering home and a flight of stairs to basement, there single handrails at every staircase. Bathroom is fit with walk-in shower, but not grab bars. The pt. states she was completely independent prior to episode of pneumonia and didn't need any assistance from friends or family. Driving, cooking, and cleaning were all activities pt. handled on her own. Currently, patient says she fatigues easily and feels weak up exertion. This is the her major complaint. Appetite has also been decreased during time in hospital, adding to pt. fatigue. She reports only having fallen once over a large pot hole, but was able to get up on her own. Stated goals are to return home as soon as possible to prior level of function. Pt. reported she felt much better after arm bike and exercises. PAST MEDICAL HISTORY: History of hyponatremia, cerebrovascular disease, with elevated tobacco use. No relevant past musculoskeletal injuries present. OBJECTIVE FINDINGS: Pt. shows ability to transfer and dress herself independently. No deficits in AROM or PROM are present. MMT was even L and right (5/5) in all movements ( shoulder flex/abd, elbow flex/ext, wrist RD/UD/flex/ext, hip flex, knee flex/ext , and DF/PF), with pain in knee during knee extension. PJS was WNL for UE and LE. Pt. is able to walk 200 ft. with standby assist, no gait deficits noted. ASSESSMENT: Pt. presents with generalized weakness in UEs and LEs due to episode of pneumonia. Pt has been in the hospital for 7 days and was able to dress herself and transfer independently. No breaks were needed during walk down to rehab clinic and she was able to walk independently with 2L of O2. She was able to complete arm bike and 2 sets of therapeutic exercises with breaks in PRN. She said her RPE was a 3/10 throughout exercise and productive cough was noted post treatment. Pt. will benefit from endurance and strength activities to help improve ability to function and complete ADLs independently. Problem list: 1. Pneumonia 2. Weakness 3. Decreased endurance 4. Smoking habit 5. Lack of spouse/family Short-term goals: to be met by discharge from inpatient. 1. Patient will increase LE strength and be able to complete 10 sit to stands, to allow for ability to complete chores such as cleaning. 2. Patient will increase endurance and be able to complete 6 minutes of work on arm bike to provide increased tolerance to UE work, so patient can cook independently. 3. Pt will adhere to and be able to independently complete HEP exercises to continue to make gains outside of therapy. Long-term goals: to be met following discharge from inpatient. 1. Patient will increase strength in LE so patient will be able to ascend/ descend 1 flight of stairs so patient can navigate stairs at home. 2. Increase endurance and allow for patient to be able to walk 500 ft. independently, so patient can AMB in the community as needed. TREATMENT PLAN: Pt will be seen BID during the week and one time per day over the weekend as an impatient until patient has been fit for discharge. INITIAL TREATMENT: Treatment consisted of the initial evaluation followed by walk down to rehabilitation clinic where therapeutic activity was completed. Activity included 3 minutes on arm bike, glute sets, and reciprocal diagonals for core strength. Respectfully submitted, Tony Mcconnell, [facility] [employer], [facility]
--- NOTE | 2017-05-26 14:40 | PT.PROG ---
Progress Note Progress Note: SUBJECTIVE: Pt. reported no pain during exercise treatment. She stated she got a great workout from the Nust[employer] and her RPE was 5/10. RPE was around 3/10 with other exercises. She also said she had an increased appetite from this mornings session and she was able to nap after last treatment as well. OBJECTIVE: Pt. O2 and HR was taken throughout treatment, exercise was stopped when below 90 %. Average O2 was 92% Airex balance set (side to side, front to back, toss with balloon) Tandem stance leading with both legs (30 sec ea. MARKY) ASSESSMENT: Pt. tolerated exercise well and was able to balance in full tandem with MARKY. Productive cough was also produced post ther ex. PLAN: Continue with endurance, functional activity, and therapeutic activity for LE strength and balance.
--- NOTE | 2017-05-26 14:41 | PTI REPORT ---
Thank you for the referral of Unique Winters. She was seen on 05/26/17 for an occupational therapy inpatient evaluation secondary to weakness. SUBJECTIVE: The patient is a 76-year-old female who lives at home in [place], [place] with her dog. Prior to admission the patient was driving. She was able to complete all ADLs independently and she was able to complete all iADLs including laundry, cooking, cleaning, grocery shopping independently. The patient was also able to take care of her dog independently. The patient has two steps into the entrance of her home with one hand rail and has steps to go downstairs in order to do laundry with one hand rail. The patient was able to complete these tasks with no concern for safety. The patient has a walk in shower at home with no adaptive equipment needed. The patient was able to take care of most things independently. She was on vacation when she started feeling sick thus the admission to the hospital for pneumonia. PAST MEDICAL HISTORY: Past medical history can be found in the patient's medical record. OBJECTIVE FINDINGS: General observations: The patient is currently on two liters of oxygen within the hospital; however, she does not use oxygen at home. Range of motion: The patient's upper extremity range of motion for shoulders, elbows, wrists, and hands are within normal limits. Strength: Upper extremity strength for shoulder flexion/abduction is 3+/5. Elbow, wrist, and hand strength are 4/5. Transfers: The patient is able to transfer from sit to stand independently and safely. Ambulation: The patient ambulates without the use of an assistive device. The patient does become short of breath with walking or movement for more than five minutes at a time. Falls: The patient does report one fall that happened on vacation. She states she stepped off of a curb into a pothole while it was raining and fell to her knees. Other than that--no significant fall history. Activities of daily living: The patient completed dressing tasks including upper extremity and lower extremity dressing, fastening buttons and closures, and retrieval of clothing independently. The patient was able to sit edge of bed and don socks with no concerns at this time. However, the patient did become slightly short of breath following dressing tasks and required a short rest break. ASSESSMENT: Problem List: Generalized weakness Decreased activity tolerance Short-Term Goals: To be met by discharge from inpatient: Patient will be able to tolerate 10 minuets of activity before becoming short of breath or requiring a rest break. Patient will increase upper extremity strength to 4+/5 bilaterally. Long-Term Goals: To be met following discharge from inpatient: Patient will return home to prior level of function with no concerns of weakness or falls. TREATMENT PLAN: Patient will be seen B.I.D during the week and one time per day over the weekend as an inpatient to address the above goals and objectives. INITIAL TREATMENT: Treatment today consisted of the initial evaluation followed by upper and lower extremity dressing, functional ambulation, and the upper body ergometer x3 minutes before requiring a rest break. MO
[2017-05-26] MEDS: NICOTINE 14 MG /DAY PATCH TRANSDERM SCH (15:30)
[2017-05-26] MEDS: Patch Removal PATCH TRANSDERM SCH (15:30)
[2017-05-26] MEDS: Levofloxacin (Premix) 750 MG/150 ML PIGGYBACK IV SCH (15:30)
--- NOTE | 2017-05-26 17:00 | OT.PROG ---
Progress Note Progress Note: S: pt stated she would be doing good if she wasn't sick. She reports getting sick on a cruise O: pt was seen in her room and completed functional transfer downstairs with no assistive device. She completed 6 min On nu step to increase overall activity tolerance. she transferred Ind to EOB and completed UE exercises with RTb in all planes x15 with BUE's. OT did assist pt with balance activity. A: pt may continue to benefit from therapy to increase overall activity tolerance as at this time it is low. P: continue Per POC.
[2017-05-26] MEDS: traMADol 50 MG TABLET PO PRN (18:45)
[2017-05-27] MEDS: traMADol 50 MG TABLET PO PRN (00:47)
[2017-05-27] MEDS: IPRATROPIUM/ALBUTEROL SULFATE 3 ML NEB NEB SCH ×2 (06:54→11:10)
[2017-05-27 07:48] VITALS: TEMP 98.6
[2017-05-27] MEDS: ENOXAPARIN SODIUM 40 MG/0.4 ML SYRINGE SUBCUT SCH (08:06)
[2017-05-27] MEDS: GUAIFENESIN 600 MG TABLET PO SCH (08:06)
[2017-05-27] MEDS ORDERED: Sodium Chloride 0.9% 500 ML ONE (10:29)
[2017-05-27] MEDS ORDERED: Sodium Chloride 0.9% 2,000 ML ONE (10:29)
--- NOTE | 2017-05-27 11:22 | PT.PROG ---
Progress Note Progress Note: S. Patient stated that she is feeling a little better this morning compared to yesterday. Patient states that she is breathing a little easier today. O. Patient ambulated 175 feet to the therapy gym where she used the nu-step x 5 minutes, then performed exercises in the form of; long arc quads, heel toe raises, marches, ball squeezes, sit to stands all x 10 with 2#. Patient ambulated 175 feet back to her room where she was left in her chair with call light. A. Patient tolerated therapy well, she was able to perform longer duration of exercise with fewer rest breaks. Patient would continue to benefit from skilled therapy at this time to gain endurance. P. Continue POC.
--- NOTE | 2017-05-27 11:30 | DCSUMMARY ---
Hospitalization Summary Admit Date: 05/20/17 Discharge Date: 05/27/17 Hospital Course: Discharge diagnosis 1. Bilateral pneumonia worse on the left 2. Pleural-based nodules along the lateral aspect of the apical segment of the right upper lobe. The more anterior component has speculated appearance. Need follow-up 3. Bullous emphysema 4. History of diverticulitis status post hemicolectomy 5. Tobacco abuse 6. 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 Elevated LFTs may be secondary to the infection Hospital course This is a 76 years old female who presented to the clinic on the because of history of cough. She was on a river boat trip down the [place] when she developed some cough and chills. Her cold symptoms progressively got worse. She did try [id number] cold and cough medication but that didn't help. She was febrile in the clinic, also she had hypoxia. Dr. Santos was called and he admitted the patient directly. She had a chest x-ray which showed infiltrates. Blood culture was taken and she was started on antibiotics. White count was elevated at 21,000. She was also hyponatremic. A CT of the chest showed bilateral lobe infiltrates primarily involving the basal segments of the left lower lobe but also of the anterobasal and lateral basal segment of the right lower lobe. These are consistent with pneumonia although If they do not resolve in typical fashion of a pneumonia then consideration for alveolar cell carcinoma should be made. There adenopathy in the superior and middle mediastinum. There are pleural-based nodule located along the lateral aspect of the apical segment of the right upper lobe. The more anterior component has speculated appearance. We continued with antibiotics ,antigen for Legionella and the strep was sent. Her information was sent to [facility] in [place] to look at these nodules later on when she is discharge. I saw her later on during the hospital stay we continued antibiotics however I was concerned that she may have an atypical even fungal infection so we did send for histoplasma antigen which came back later on negative. I did speak with infectious disease and they suggested switching her to Levaquin as they were thinking maybe this Legionella. it came back negative. But the history is suggestive more of her Legionella. She did have some hyponatremia which improved. She did have some LFTs were abnormal need to follow-up while she is here in the hospital. She improved gradually and slowly she remained weak so we thought she could be switched to swing bed to continue physical therapy before she goes back home as she lives a alone and 40 miles away. Laboratory Results 05/20/17 05/21/17 05/21/17 Range/Units 09:34 05:25 05:25 WBC 19.44 H (4.8-10.8) 10^3/uL RBC 3.76 L (4.20-5.40) 10^6/uL Hgb 11.8 L (12.0-16.0) g/dL Hct 34.1 L (37.0-47.0) % MCV 90.7 (81-99) FL MCH 31.4 H (27-31) PG MCHC 34.6 (33-37) g/dL RDW Std Deviation 40.9 (39-50) fL RDW Coeff of Alisa 12.6 (11.5-14.5) % Plt Count 286 (140-350) 10*3/uL MPV 9.4 (7.4-12.2) FL Neutrophils % (Manual) 74 (50-80) % Band Neutrophils % 8 (0-10) % Lymphocytes % (Manual) 8 L (10-50) % Monocytes % (Manual) 10 (0-12) % Eosinophils % (Manual) 0 (0-8) % Basophils % (Manual) 0 (0-1) % Metamyelocytes % Not Reportable Myelocytes % Not Reportable Promyelocytes % Not Reportable Blast Cells Not Reportable WBC Morphology Comment Normal morphology (NORM) Plt Morphology Comment Normal morphology (NORM) RBC Morph Comment Normal morphology (NORM) Sodium 129 L (135-145) meq/L Potassium 4.3 (3.8-5.2) meq/L Chloride 99 (98-112) meq/L Carbon Dioxide 21 L (23-33) meq/L Anion Gap 9 (5-20) BUN 11 (7-22) mg/dL Creatinine 0.6 (0.50-1.20) mg/dL BUN/Creatinine Ratio 18.33 (6-20) Glucose 93 (78-110) mg/dL Calculated Osmolality 266.0 L (267-292) mOsm/kg Calcium 7.6 L (8.7-10.7) mg/dL Total Bilirubin (0.3-1.2) mg/dL AST (8-39) IU/L ALT (9-52) IU/L Alkaline Phosphatase (38-126) IU/L Total Protein (6.1-8.0) g/dL Albumin (3.5-4.8) g/dL Globulin (2.50-4.10) g/dL Albumin/Globulin Ratio (1.3-2.0) mg/g TSH (0.2700-4.2000) uIU/mL Free T4 (0.93-1.71) ng/dL Total Cortisol mcg/dL Ur Random Sodium (30-90) MMOL/L Urine Histoplasma Ag (Negative) U Histoplasma Ag Index ng/mL Ur L.pneumophila Ag Negative (Negative) Ur Strep pneumoniae Ag Negative (Negative) 05/21/17 05/22/17 05/22/17 Range/Units 09:34 03:22 03:22 WBC (4.8-10.8) 10^3/uL RBC (4.20-5.40) 10^6/uL Hgb (12.0-16.0) g/dL Hct (37.0-47.0) % MCV (81-99) FL MCH (27-31) PG MCHC (33-37) g/dL RDW Std Deviation (39-50) fL RDW Coeff of Alisa (11.5-14.5) % Plt Count (140-350) 10*3/uL MPV (7.4-12.2) FL Neutrophils % (Manual) (50-80) % Band Neutrophils % (0-10) % Lymphocytes % (Manual) (10-50) % Monocytes % (Manual) (0-12) % Eosinophils % (Manual) (0-8) % Basophils % (Manual) (0-1) % Metamyelocytes % Myelocytes % Promyelocytes % Blast Cells WBC Morphology Comment (NORM) Plt Morphology Comment (NORM) RBC Morph Comment (NORM) Sodium (135-145) meq/L Potassium (3.8-5.2) meq/L Chloride (98-112) meq/L Carbon Dioxide (23-33) meq/L Anion Gap (5-20) BUN (7-22) mg/dL Creatinine (0.50-1.20) mg/dL BUN/Creatinine Ratio (6-20) Glucose (78-110) mg/dL Calculated Osmolality (267-292) mOsm/kg Calcium (8.7-10.7) mg/dL Total Bilirubin (0.3-1.2) mg/dL AST (8-39) IU/L ALT (9-52) IU/L Alkaline Phosphatase (38-126) IU/L Total Protein (6.1-8.0) g/dL Albumin (3.5-4.8) g/dL Globulin (2.50-4.10) g/dL Albumin/Globulin Ratio (1.3-2.0) mg/g TSH 2.38 (0.2700-4.2000) uIU/mL Free T4 1.64 (0.93-1.71) ng/dL Total Cortisol 13 mcg/dL Ur Random Sodium 120 H (30-90) MMOL/L Urine Histoplasma Ag (Negative) U Histoplasma Ag Index ng/mL Ur L.pneumophila Ag (Negative) Ur Strep pneumoniae Ag (Negative) 05/23/17 05/23/17 05/23/17 Range/Units 04:35 04:35 08:57 WBC 18.32 H (4.8-10.8) 10^3/uL RBC 3.63 L (4.20-5.40) 10^6/uL Hgb 11.3 L (12.0-16.0) g/dL Hct 32.7 L (37.0-47.0) % MCV 90.1 (81-99) FL MCH 31.1 H (27-31) PG MCHC 34.6 (33-37) g/dL RDW Std Deviation 39.2 (39-50) fL RDW Coeff of Alisa 12.3 (11.5-14.5) % Plt Count 375 H (140-350) 10*3/uL MPV 9.3 (7.4-12.2) FL Neutrophils % (Manual) 68 (50-80) % Band Neutrophils % 9 (0-10) % Lymphocytes % (Manual) 14 (10-50) % Monocytes % (Manual) 9 (0-12) % Eosinophils % (Manual) 0 (0-8) % Basophils % (Manual) 0 (0-1) % Metamyelocytes % Not Reportable Myelocytes % Not Reportable Promyelocytes % Not Reportable Blast Cells Not Reportable WBC Morphology Comment Normal morphology (NORM) Plt Morphology Comment Normal morphology (NORM) RBC Morph Comment Normal morphology (NORM) Sodium 127 L (135-145) meq/L Potassium 3.9 (3.8-5.2) meq/L Chloride 96 L (98-112) meq/L Carbon Dioxide 23 (23-33) meq/L Anion Gap 8 (5-20) BUN 6 L (7-22) mg/dL Creatinine 0.5 (0.50-1.20) mg/dL BUN/Creatinine Ratio 12.00 (6-20) Glucose 100 (78-110) mg/dL Calculated Osmolality 261.0 L (267-292) mOsm/kg Calcium 8.2 L (8.7-10.7) mg/dL Total Bilirubin (0.3-1.2) mg/dL AST (8-39) IU/L ALT (9-52) IU/L Alkaline Phosphatase (38-126) IU/L Total Protein (6.1-8.0) g/dL Albumin (3.5-4.8) g/dL Globulin (2.50-4.10) g/dL Albumin/Globulin Ratio (1.3-2.0) mg/g TSH (0.2700-4.2000) uIU/mL Free T4 (0.93-1.71) ng/dL Total Cortisol mcg/dL Ur Random Sodium (30-90) MMOL/L Urine Histoplasma Ag Negative (Negative) U Histoplasma Ag Index 0.00 ng/mL Ur L.pneumophila Ag (Negative) Ur Strep pneumoniae Ag (Negative) 05/24/17 05/24/17 05/25/17 Range/Units 04:25 04:25 04:20 WBC 15.69 H 13.62 H (4.8-10.8) 10^3/uL RBC 3.65 L 3.67 L (4.20-5.40) 10^6/uL Hgb 11.3 L 11.2 L (12.0-16.0) g/dL Hct 32.6 L 32.9 L (37.0-47.0) % MCV 89.3 89.6 (81-99) FL MCH 31.0 30.5 (27-31) PG MCHC 34.7 34.0 (33-37) g/dL RDW Std Deviation 37.7 L 38.8 L (39-50) fL RDW Coeff of Alisa 11.9 12.2 (11.5-14.5) % Plt Count 419 H 504 H (140-350) 10*3/uL MPV 9.4 8.9 (7.4-12.2) FL Neutrophils % (Manual) 67 63 (50-80) % Band Neutrophils % 0 0 (0-10) % Lymphocytes % (Manual) 19 21 (10-50) % Monocytes % (Manual) 14 H 16 H (0-12) % Eosinophils % (Manual) 0 0 (0-8) % Basophils % (Manual) 0 0 (0-1) % Metamyelocytes % Not Reportable Not Reportable Myelocytes % Not Reportable Not Reportable Promyelocytes % Not Reportable Not Reportable Blast Cells Not Reportable Not Reportable WBC Morphology Comment See comments See comments (NORM) Plt Morphology Comment Normal morphology Normal morphology (NORM) RBC Morph Comment Normal morphology Normal morphology (NORM) Sodium 130 L (135-145) meq/L Potassium 4.3 (3.8-5.2) meq/L Chloride 97 L (98-112) meq/L Carbon Dioxide 22 L (23-33) meq/L Anion Gap 11 (5-20) BUN 6 L (7-22) mg/dL Creatinine 0.5 (0.50-1.20) mg/dL BUN/Creatinine Ratio 12.00 (6-20) Glucose 95 (78-110) mg/dL Calculated Osmolality 267.0 (267-292) mOsm/kg Calcium 8.4 L (8.7-10.7) mg/dL Total Bilirubin (0.3-1.2) mg/dL AST (8-39) IU/L ALT (9-52) IU/L Alkaline Phosphatase (38-126) IU/L Total Protein (6.1-8.0) g/dL Albumin (3.5-4.8) g/dL Globulin (2.50-4.10) g/dL Albumin/Globulin Ratio (1.3-2.0) mg/g TSH (0.2700-4.2000) uIU/mL Free T4 (0.93-1.71) ng/dL Total Cortisol mcg/dL Ur Random Sodium (30-90) MMOL/L Urine Histoplasma Ag (Negative) U Histoplasma Ag Index ng/mL Ur L.pneumophila Ag (Negative) Ur Strep pneumoniae Ag (Negative) 05/25/17 05/26/17 05/26/17 Range/Units 04:20 04:15 04:15 WBC 13.70 H (4.8-10.8) 10^3/uL RBC 3.55 L (4.20-5.40) 10^6/uL Hgb 11.2 L (12.0-16.0) g/dL Hct 31.9 L (37.0-47.0) % MCV 89.9 (81-99) FL MCH 31.5 H (27-31) PG MCHC 35.1 (33-37) g/dL RDW Std Deviation 38.8 L (39-50) fL RDW Coeff of Alisa 12.3 (11.5-14.5) % Plt Count 505 H (140-350) 10*3/uL MPV 8.3 (7.4-12.2) FL Neutrophils % (Manual) 60 (50-80) % Band Neutrophils % 1 (0-10) % Lymphocytes % (Manual) 27 (10-50) % Monocytes % (Manual) 9 (0-12) % Eosinophils % (Manual) 2 (0-8) % Basophils % (Manual) 1 (0-1) % Metamyelocytes % Not Reportable Myelocytes % Not Reportable Promyelocytes % Not Reportable Blast Cells Not Reportable WBC Morphology Comment See comments (NORM) Plt Morphology Comment Normal morphology (NORM) RBC Morph Comment Normal morphology (NORM) Sodium 131 L 134 L (135-145) meq/L Potassium 4.0 4.2 (3.8-5.2) meq/L Chloride 98 98 (98-112) meq/L Carbon Dioxide 22 L 24 (23-33) meq/L Anion Gap 11 12 (5-20) BUN 8 9 (7-22) mg/dL Creatinine 0.5 0.5 (0.50-1.20) mg/dL BUN/Creatinine Ratio 16.00 18.00 (6-20) Glucose 89 94 (78-110) mg/dL Calculated Osmolality 268.0 276.0 (267-292) mOsm/kg Calcium 8.4 L 8.4 L (8.7-10.7) mg/dL Total Bilirubin 0.7 0.6 (0.3-1.2) mg/dL AST 54 H 80 H (8-39) IU/L ALT 68 H D 97 H (9-52) IU/L Alkaline Phosphatase 69 63 (38-126) IU/L Total Protein 5.6 L 5.5 L (6.1-8.0) g/dL Albumin 2.6 L 2.5 L (3.5-4.8) g/dL Globulin 3.0 3.0 (2.50-4.10) g/dL Albumin/Globulin Ratio 0.80 L 0.80 L (1.3-2.0) mg/g TSH (0.2700-4.2000) uIU/mL Free T4 (0.93-1.71) ng/dL Total Cortisol mcg/dL Ur Random Sodium (30-90) MMOL/L Urine Histoplasma Ag (Negative) U Histoplasma Ag Index ng/mL Ur L.pneumophila Ag (Negative) Ur Strep pneumoniae Ag (Negative) Patient status will be changed to swing bed status continue physical therapy. Patient had 5 days of Levaquin so that's discontinued Exam - Vitals Vital Signs: Vital Signs Temperature 98.6 F Temperature Source Temporal Artery Scan Pulse Rate [Apical] 88 Pulse Rate [Pulse Oximeter] 82 Pulse Rate 80 Respiratory Rate 18 Blood Pressure [Right Arm] 103/44 Blood Pressure [Left Arm] 135/68 Pulse Ox 98 Oxygen Flow Rate 1 Oxygen Delivery Method Nasal Cannula Height 5 ft 6 in Weight 129 lb 6.4 oz Patient Problems - Patient Problem List (1) Community acquired pneumonia Current Visit: Yes Status: Acute Code(s): J18.9 - Pneumonia, unspecified organism Qualifiers: Laterality: right Lung location: lower lobe of lung Qualified Code(s): J18.1 - Lobar pneumonia, unspecified organism Category: Medical (2) Hyponatremia Current Visit: Yes Status: Acute Code(s): E87.1 - Hypo-osmolality and hyponatremia Category: Medical
[2017-05-27] MEDS: GUAIFENESIN/CODEINE SYRUP 100 MG/ 10 MG/ 5 ML UD CUP PO PRN (12:36)
[2017-05-27 12:46] VITALS: BP 101/52; RESP 22; O2SAT 91
[2017-05-27] MEDS: Levofloxacin (Premix) 750 MG/150 ML PIGGYBACK IV SCH (14:20)
[2017-05-27] MEDS: NICOTINE 14 MG /DAY PATCH TRANSDERM SCH (14:21)
[2017-05-27] MEDS: NORMAL SALINE 10 ML SYRINGE FLUSH IVP PRN (14:22)
--- NOTE | 2017-05-27 14:32 | OT AM DAY ---
Diagnosis : Weakness AM - Occupational Therapy S: The patient states she is doing better. She states she still feels kind of weak. O: The patient was transferred down to therapy by PT. She completed upper extremity exercises including red theraband resisted shoulder extension, shoulder flexion, triceps extension, biceps flexion, and internal/external rotation, all x15 bilaterally to increase her strength and overall activity tolerance. A: The patient has improved with her activity tolerance but would continue to benefit from increased strengthening. P: Continue seeing patient BID during the week and one time per day over the weekend for upper extremity strengthening, ADLs, and overall functional mobility. MO
[2017-05-27] MEDS: Patch Removal PATCH TRANSDERM SCH (14:37)
[2017-05-27 15:06] LABS: HISTOPLASMA MYCELIAL Negative (Negative)
[2017-05-28 08:25] LABS: HISTOPLASMA IMMUNODIFFUSION Negative (Negative)
== END 2017-05-27 14:41 | disposition swing bed (61) | DRG 194 ==
LOC: MED/SURG 15:47
PROVIDERS: ADMIT Family Medicine; ATTEND Family Medicine